=== PATIENT | male | born 1950 | race Caucasian/White ===

== ENCOUNTER → 2023-04-26 12:00 | Outpatient (REF) | payer MEDICARE, OTHER, SELFPAY | LOC: DHSLP 12:00 | PROVIDERS: ATTENDING PHYSICIAN Internal Medicine Critical Care Medicine; FAMILY PHYSICIAN Family Medicine | DX: G47.33 Obstructive sleep apnea (adult) (pediatric) (principal) | CPT/HCPCS: 95800 ==

== ENCOUNTER 2023-05-17 08:52 | Day surgery (SDC) | payer MEDICARE, OTHER, SELFPAY ==
[2023-05-17] VITALS (13 sets, daily range): BP systolic 124–165; BP diastolic 78–95; BMI 29.3
[2023-05-17 13:09] LABS: ACT-LR - POC 260 Seconds (116-155)
[2023-05-17 13:22] LABS: ACT-LR - POC 295 Seconds (116-155)
[2023-05-17 13:37] LABS: ACT-LR - POC 316 Seconds (116-155)
[2023-05-17 13:57] LABS: ACT-LR - POC 331 Seconds (116-155)
[2023-05-17 14:20] LABS: ACT-LR - POC 279 Seconds (116-155)
[2023-05-17 14:45] LABS: ACT-LR - POC 266 Seconds (116-155)
[2023-05-17 15:06] LABS: ACT-LR - POC 314 Seconds (116-155)
[2023-05-17 15:24] LABS: ACT-LR - POC 292 Seconds (116-155)
[2023-05-17 15:53] LABS: ACT-LR - POC 281 Seconds (116-155)
[2023-05-17 16:10] LABS: ACT-LR - POC 298 Seconds (116-155)
[2023-05-17 16:20] LABS: ACT-LR - POC 150 Seconds (116-155)
[2023-05-17] MEDS: TYLENOL 650 MG PO (17:25)
--- NOTE | 2023-05-17 17:28 | ITS.CL.ABL ---
[facility] - Ablation
Ablation
Procedure Report:
Primary Physician: Fermín Keene MD
Primary Treasury Associate: Turner Albarado MD
Procedure Date: 05/17/2023
Procedure
Electrophysiology Study with SVT ablation
Left atrial recording / pacing
IV drug for arrhythmia induction
Patient History
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
monitor. Event monitor demonstrated 2 hours of narrow complex tachycardia. It appeared to be short RP in nature with a cycle length of 280 ms. Patient maintained on beta-antonia with improvement in symptoms but no resolution.
Method
After informed consent was obtained, the patient was brought to the EP lab in a post-absorptive, non-sedated state. A peripheral IV was in place. Continuous electrocardiography, blood pressure and pulse oximetry monitoring was initiated and
cardioversion / defibrillator electrodes were positioned on the chest in an AP orientation. A 'time-out' was called. Conscious sedation was administered with the assistance of the anesthesia services, and local anesthesia was given at the femoral
vein access sites.
Using modified Seldinger technique, vascular access was achieved and sheaths were placed. Multipolar catheters were advanced to the coronary sinus, His bundle recording position, right ventricle, and high right atrium. Following the determination
of baseline conduction intervals, comprehensive EP study was performed. Pacing and recording from the RA, RV, HBE, and CS / LA was performed.
For arrhythmia details, see below.
Fluoroscopy time:
10.4 min; 50.38 mGy; DAP 5.47
Total RF time:
4 min 10 s
Estimated Blood Loss
5-10 mL
Complications
None
At the end of the procedure, all catheters and sheaths were removed and hemostasis was assured with protamine, Vascade, manual pressure. The patient was returned to the recovery area in stable condition.
Access Sites:
Left Femoral Vein: 2 sheaths (7 Fr, 6 Fr)
Right Femoral Vein: 2 sheaths (9 Fr upsized to 11.5 Fr, 6 Fr)
Baseline Intervals:
Rhythm: SR
MS: 180 ms
AH: 72 ms
HV: 37 ms
QRS: 101 ms
QT: 367 ms
QTc: 412 ms
A-A: 792 ms
R-R: 792 ms
Post-Procedure Intervals:
MS: 191 ms
AH: 88 ms
HV: 35 ms
QRS: 106 ms
QT: 361 ms
QTc: 419 ms
A-A: 743 ms
R-R: 743 ms
AV Conduction:
- AVWB at 370 msec (pre), AVWB at 350 msec (post)
- VAWB at 490 msec (pre), VAWB at 310 msec (post)
Refractory Periods:
- AV Node ERP 450/340 (pre), AV Node ERP 600/330 (post)
- Atrial ERP 600/290 (pre), Atrial ERP 600/230 (post)
Procedure Synopsis:
The patient entered the room in sinus rhythm. Following placement of catheters as noted above, baseline measurements were obtained. Next, threshold testing was performed. VA Wenke block was performed demonstrating concentric activation from RV
apex. Para-Hisian pacing was performed which demonstrated an extranodal response at 110 ms (VA time). Single extrastimuli from the atrium demonstrated an AH jump with single echo without induction of tachycardia at 450/350 ms followed by AV jamal
ERP at 450/340 ms (dual jamal physiology). Arrhythmia induction was attempted but unsuccessful at baseline. Isoproterenol was started and induction attempts were resumed with burst atrial pacing. Patient was noted to have 2 different tachycardia
cycle length on induction; both tachycardias were narrow complex, short RP; 270 to 280 ms, 360 to 370 ms with similar activation (septal, eccentric, CS 7-8 early). Next, ventricular overdrive pacing was performed demonstrating a consistent VA(H)V
response (consistent with AVNRT v AVRT). During ventricular overdrive pacing when patient in the 360 ms tachycardia, PPI minus TCL (410-360ms) was 50 ms (this is less than 115 ms, consistent with AVRT). Stim-A was 104 ms, VA was 62 (in
tachycardia); SA-VA 42 ms (less than 85 ms, consistent with AVRT). Heparin was provided for an ACT 300-400 and an HD Grid catheter was introduced for high-density mapping during tachycardia. This provided insight into the insertion of the accessory
bypass tract into the atrium with 2 discrete insertion sites for the 2 different tachycardia cycle lengths at the inferior/inferoseptal portion of the tricuspid annulus near the floor of the coronary sinus. Careful attention was paid to HIS bundle
recording and was annotated with a HIS cloud markings on the electroanatomic mapping system. After thorough mapping, grid catheter was removed, 9 [place] sheath was exchanged for a 11.5 [place] steerable sheath and a Money360 SE ablation catheter
was introduced. Ablation catheter was placed in the region noted by high-density mapping. No HIS potential was noted on the ablation distal catheter or near ablation catheter. RF was performed 25 to 30 W with reduced flow and with careful
monitoring of temperature and impedance. Following ablation, reinduction was attempted. Arrhythmia was no longer inducible with atrial extrastimuli and with burst atrial pacing. Next, the ablation catheter was removed and the high density grid
catheter was reintroduced. RV apical pacing S1-S2 was performed with earliest atrial activation mapped using the high density grid catheter. Unfortunately, earliest activation was now noted to be at the region of the HIS potential cloud.
Para-Hisian pacing was once again performed which now demonstrated a jamal response. Again, isoproterenol was started and attempt for reinitiation was performed however arrhythmia was noninducible. Additionally, no AH jump was noted with S1/S2
(no evidence of dual jamal pathway/physiology). After washout and return to baseline, maneuvers were once more performed and no evidence of dual jamal pathway/physiology, no evidence of inducible arrhythmias, and a jamal response.
Measurement/intervals were obtained. Catheters were removed, hemostasis was achieved as noted above. Of note, during procedure non-sustained AF (< 30s) with spontaneous return to SR was noted.
Recommendations
- Admit to telemetry/IVU for monitoring
- Bedrest with straight-leg precautions
- OK to resume Eliquis tonight if patient and groins stable
- Continue home medications as indicated
- Follow-up in office in 4-6 weeks
Fermín Smith,
Clinical Cardiac Electrophysiology
cc: Fermín Keene MD; Turner Albarado MD
--- NOTE | 2023-05-17 18:43 | PTCARENOTE ---
Pt received from cath recovery area post SVT ablation. Pt c/o back discomfort, he stated 'tylenol was helping'. Bilateral femoral vein sites with dry and intact dressings, no sign of bleeding or hematoma.Telemetry shows sinus rhythm. No void at this
time. Pt sitting up in bed.
[2023-05-17] MEDS: ELIQUIS 5 MG PO (22:32)
--- NOTE | 2023-05-18 00:22 | PTCARENOTE ---
Received patient at change of shift this PM. AAOx3. VSS. He is NSR on the monitor. HR in the 70s-80s. INT patent. B/L groin sites appear clean, dry, and intact. He denies chest pain or discomfort. Plan of care discussed. He is receptive to teaching
and motivated, but blind in the right eye and may need some assistance. We discussed his medications and he has no further questions about these at this time. He denies pain and appears comfortable in bed. Will continue to monitor.
[2023-05-18 03:27] VITALS: BP 140/92
[2023-05-18 04:17] LABS: Hematocrit 38.3 % (39.0-52.0); Hemoglobin 13.6 g/dL (13.0-18.0); Mean Corp Hgb Conc. 35.5 g/dL (33.0-37.0); Mean Corpuscular Hgb 31.3 pg (27.0-31.0); Mean Corpuscular Volume 88.2 fL (80.0-94.0); Mean Platelet Volume 9.4 fL (7.4-10.4); Platelet Count 162 10^3/uL (130-400); Red Blood Cell Count 4.34 10^6/uL (4.70-6.10); Red Cell Dist. Width 12.9 % (11.5-14.5); White Blood Cell Count 5.8 10^3/uL (4.8-10.8)
[2023-05-18 04:33] LABS: Blood Urea Nitrogen 19 mg/dl (9-20); Carbon Dioxide 25 mmol/L (22-30); Chloride 108 mmol/L (98-107); Estimated Creatinine Clearance 49 ml/min; Glucose 92 mg/dl (70-99); Potassium 4.4 mmol/L (3.5-5.1); Sodium 137 mmol/L (135-145)
[2023-05-18] MEDS: TYLENOL 650 MG PO (05:50)
[2023-05-18 07:01] VITALS: BP 151/86
--- NOTE | 2023-05-18 08:08 | W.PN.CARDCBS ---
Addendum entered and electronically signed by Garrett Davenport MD 05/18/23 09:34:
Patient seen and examined
Agree with TRUCK RENTAL SERVICE ATTENDANT note and assessment
Exam:
Groin sites clean dry and intact
Cor regular
Telemetry reviewed with 4 beats of NSVT otherwise no SVT
EKG reviewed
Lungs clear to auscultation bilaterally
Abdomen soft nontender positive bowel sounds
PCP: Fermín Keene MD
CDY: Turner Albarado MD
Impression:
Symptomatic Supraventricular tachycardia
Post SVT ablation 05/17/23
NSVT
HTN
HLD
COPD with asthmatic component
probable AUGUSTO, undergoing w/u outpt
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
CKD 3ba
Prostate cancer s/p XRT 2011
obesity
Plan:
post SVT ablation, feels good
tele SR
groins stable
continue OAC Eliquis for DVT/PE
continue metoprolol xl 50 daily
Activity restrictions reviewed
f/u DCA 1 mo
home today
Original Note:
Today's Communication / Plan
-
Post SVT ablation
stable for d/c home
Impression / Plan
-
PCP: Fermín Keene MD
CDY: Turner Albarado MD
Impression:
Symptomatic Supraventricular tachycardia
Post SVT ablation 05/17/23
NSVT
HTN
HLD
COPD with asthmatic component
probable AUGUSTO, undergoing w/u outpt
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
CKD 3ba
Prostate cancer s/p XRT 2011
obesity
Plan:
post SVT ablation, feels good
tele SR
groins stable
continue OAC Eliquis for DVT/PE
continue metoprolol xl 50 daily
Activity restrictions reviewed
f/u DCA 1 mo
home today
Progress Note - Medical Administrator
Subjective
Date of Service: May 18, 2023
no cp, sob
Objective
Labs:
05/18/23 03:39
05/18/23 03:39
Labs
Hgb 13.6 g/dL (13.0-18.0) 05/18/23 03:39
Hct 38.3 % (39.0-52.0) L 05/18/23 03:39
Plt Count 162 10^3/uL (130-400) 05/18/23 03:39
Sodium 137 mmol/L (135-145) 05/18/23 03:39
Potassium 4.4 mmol/L (3.5-5.1) 05/18/23 03:39
BUN 19 mg/dl (9-20) 05/18/23 03:39
Creatinine 1.3 mg/dL (0.7-1.3) 05/18/23 03:39
Glucose 92 mg/dl (70-99) 05/18/23 03:39
Vital Signs and I&O:
Vital Signs
Temp Pulse Resp BP Pulse Ox
98.3 F 73 18 151/86 96
05/18/23 03:26 05/18/23 07:45 05/18/23 03:26 05/18/23 07:01 05/18/23 07:01
Vital Signs
Temp Pulse Resp BP Pulse Ox
98.3 F 73 18 151/86 96
05/18/23 03:26 05/18/23 07:45 05/18/23 03:26 05/18/23 07:01 05/18/23 07:01
Intake & Output
05/16/23 05/17/23 05/18/23 05/19/23
06:59 06:59 06:59 06:59
Intake Total 2970 / 2970
Output Total 400 / 400
Balance 2570 / 2570
Physical Exam
Physical Exam
NAD, AOX3
S1, S2, RRR
CTAB< non labored
SNTND bsx4
B/L groins c/d/i no HT, soft
[2023-05-18] MEDS: STRIVERDI RESPIMAT 2 PUFF INH (08:11)
[2023-05-18] MEDS: SPIRIVA RESPIMAT 2.5 MCG 2 PUFF INH (08:11)
[2023-05-18] MEDS: ZESTRIL 10 MG PO (08:37)
[2023-05-18] MEDS: ELIQUIS 5 MG PO (08:38)
[2023-05-18] MEDS: TOPROL XL 50 MG PO (08:38)
[2023-05-18] MEDS: PROTONIX 40 MG PO (08:38)
[2023-05-18] MEDS: LIPITOR 10 MG PO (08:38)
--- NOTE | 2023-05-18 09:35 | CM ---
Reviewed chart. Met with Mr. Segundo to review discharge plans. He states prior to admission he resides with his spouse in a two story home without any steps to enter. He states he has a full flight of steps to get to bedroom/full bathroom. He states
he has a powder room on the first floor. He states prior to admission he was independent with ambulation and adls. He states he does not have any DME in the home. He states he has a prescription plan and uses [facility]. The discharge plan
is to return home with his spouse when medically stable.
--- NOTE | 2023-05-18 10:32 | PTCARENOTE ---
Pt up walking in halls. Pt seen by Noreen Grant, ANTONELLA and . Telemetry and IV device removed. Discharge instructions reviewed with pt and his regarding medications and their possible side effects, wound care, activity and driving guidelines,
reporting cares and concerns and follow up appt's. Excellent understanding verbalized. pt escorted out via wheelchair and discharged to home.
--- NOTE | 2023-05-18 12:33 | W.DS.TRANS ---
DC Summary - Feedlot Manager
-
Discharge Instructions:
Discharge Diagnosis/Procedures SVT, s/p ablation
Diet Low Cholesterol
Driving Restrictions No driving for 24 hours
Instructions:
Stand-Alone Forms: DC Instructions- Cath/EP Lab
Changes to Home Medications: No
Discharge Medications:
DC Medications w/original date entered in [facility]
apixaban 5 mg tablet (Eliquis) 5 mg PO BID 04/18/23
lisinopril 10 mg tablet 10 mg PO DAILY 04/18/23
metoprolol succinate 50 mg tablet,extended release 24 hr 50 mg PO DAILY 04/18/23
pantoprazole 40 mg tablet,delayed release 40 mg PO DAILY 04/18/23
simvastatin 20 mg tablet 20 mg PO DAILY 04/18/23
calcium 600 mg capsule 600 mg PO BID 04/24/23
cholecalciferol (vitamin D3) 50 mcg (2,000 unit) tablet 50 mcg PO BID 04/24/23
testosterone 1 % (50 mg/5 gram) transdermal gel packet 2 packet transdermal SUMOWEFR 04/24/23
umeclidinium 62.5 mcg-vilanterol 25 mcg/actuation powdr for inhalation (Anoro Ellipta) 1 inh inhalation DAILY 04/24/23
albuterol sulfate 90 mcg/actuation aerosol inhaler 1 puff inhalation Q6H PRN SOB 05/17/23
testosterone 1 % (50 mg/5 gram) transdermal gel packet 1 packet transdermal DAILY 05/17/23
Home Medication Changes
Pending Results: No
== END 2023-05-18 10:35 | disposition home or self-care (01) ==
LOC: CATH 08:52
PROVIDERS: Nurse Practitioner; ATTENDING PHYSICIAN Internal Medicine Cardiovascular Disease; FAMILY PHYSICIAN Family Medicine
DX: I47.10 Supraventricular tachycardia, unspecified (principal); I47.20 Ventricular tachycardia, unspecified; I12.9 Hypertensive chronic kidney disease with stage 1 through stage 4 chronic kidney disease, or unspecified chronic kidney disease; E78.5 Hyperlipidemia, unspecified; J44.89 Other specified chronic obstructive pulmonary disease; Z79.01 Long term (current) use of anticoagulants; N18.32 Chronic kidney disease, stage 3b; Z92.3 Personal history of irradiation; Z85.46 Personal history of malignant neoplasm of prostate; E66.9 Obesity, unspecified; Z86.711 Personal history of pulmonary embolism; Z86.718 Personal history of other venous thrombosis and embolism; K44.9 Diaphragmatic hernia without obstruction or gangrene; Z86.010 Personal history of colon polyps; K21.9 Gastro-esophageal reflux disease without esophagitis; K57.90 Diverticulosis of intestine, part unspecified, without perforation or abscess without bleeding; K64.9 Unspecified hemorrhoids; K76.0 Fatty (change of) liver, not elsewhere classified; R42 Dizziness and giddiness; M54.50 Low back pain, unspecified; G89.29 Other chronic pain; Z87.891 Personal history of nicotine dependence; Z85.828 Personal history of other malignant neoplasm of skin; Z86.69 Personal history of other diseases of the nervous system and sense organs; H54.61 Unqualified visual loss, right eye, normal vision left eye; M81.0 Age-related osteoporosis without current pathological fracture; I08.3 Combined rheumatic disorders of mitral, aortic and tricuspid valves; Z68.30 Body mass index [BMI] 30.0-30.9, adult
CPT/HCPCS: C1732; C1730; C1894; C1766; C2630; C1892; 76937; 80048; 85027; 85347; 93005; 93623; 93653; 94640; C1760; J0153

== ENCOUNTER → 2023-10-18 06:44 | Outpatient (REF) | payer MEDICARE, OTHER, SELFPAY | LOC: MRI 06:44 | PROVIDERS: ATTENDING PHYSICIAN Pain Medicine Interventional Pain Medicine; FAMILY PHYSICIAN Family Medicine | DX: M54.16 Radiculopathy, lumbar region (principal) | CPT/HCPCS: 72148 ==

== ENCOUNTER 2023-10-24 08:23 | Outpatient (RCR) | payer MEDICARE, OTHER, SELFPAY | END 2023-10-24 23:59 | disposition home or self-care (01) | LOC: RPT 08:23 | PROVIDERS: ATTENDING PHYSICIAN Orthopaedic Surgery Hand Surgery; FAMILY PHYSICIAN Family Medicine | DX: M25.811 Other specified joint disorders, right shoulder (principal); Z73.6 Limitation of activities due to disability | CPT/HCPCS: 97010; 97110; 97140; 97162 ==

== ENCOUNTER 2023-11-17 08:56 | Outpatient (RCR) | payer MEDICARE, OTHER, SELFPAY | END 2023-11-17 23:59 | disposition home or self-care (01) | LOC: RPT 08:56 | PROVIDERS: ATTENDING PHYSICIAN Orthopaedic Surgery Hand Surgery; FAMILY PHYSICIAN Family Medicine | DX: M25.811 Other specified joint disorders, right shoulder (principal); Z73.6 Limitation of activities due to disability | CPT/HCPCS: 97010; 97110; 97140 ==

== ENCOUNTER 2023-12-07 07:55 | Outpatient (RCR) | payer MEDICARE, OTHER, SELFPAY | END 2023-12-07 09:15 | disposition home or self-care (01) | LOC: RPT 07:55 | PROVIDERS: ATTENDING PHYSICIAN Orthopaedic Surgery Hand Surgery; FAMILY PHYSICIAN Family Medicine | DX: M25.811 Other specified joint disorders, right shoulder (principal); Z73.6 Limitation of activities due to disability | CPT/HCPCS: 97010; 97110; 97140 ==

== ENCOUNTER → 2024-03-19 07:05 | Outpatient (REF) | payer MEDICARE, OTHER, SELFPAY | LOC: HWRAD 07:05 | PROVIDERS: ATTENDING PHYSICIAN Student in an Organized Health Care Education/Training Program | DX: M54.50 Low back pain, unspecified (principal); M53.3 Sacrococcygeal disorders, not elsewhere classified | CPT/HCPCS: 72110; 72220 ==

== ENCOUNTER → 2024-11-21 14:33 | Outpatient (REF) | payer MEDICARE, OTHER, SELFPAY | LOC: HWRAD 14:33 | PROVIDERS: ATTENDING PHYSICIAN Family Medicine | DX: M25.561 Pain in right knee (principal) | CPT/HCPCS: 73564 ==